=== PATIENT | female | born 1960 | race Caucasian/White ===

== ENCOUNTER 2022-09-05 11:26 | Inpatient (IN) | payer MEDICAID ==
[~2022-09-05] VITALS: Ht 160 cm; Wt 68.0 kg
[2022-09-05 11:30] VITALS: BP 136/74
[2022-09-05] MEDS ORDERED: ONDANSETRON 4 MG/2 ML VIAL IVP ONE (11:35)
[2022-09-05] MEDS ORDERED: NACL 0.9% 1,000 ML IV ONE (11:35)
[2022-09-05 11:54] LABS: BASOPHILS % (AUTO) 0.4 % (0.0-2.0); EOSINOPHILS # (AUTO) 0.1 K/uL (0-0.4); EOSINOPHILS % (AUTO) 1.5 % (0.0-4.0); HEMATOCRIT 41.6 % (36-48); LYMPHOCYTES # (AUTO) 2.1 K/uL (2.5-16.5); LYMPHOCYTES % (AUTO) 30.4 % (20.5-51.1); MEAN CORPUSCULAR HEMOGLOBIN 29 pg (27-31); MEAN CORPUSCULAR HGB CONC 34 g/dL (33-37); MEAN CORPUSCULAR VOLUME 86.2 fL (80-94); MONOCYTES # (AUTO) 0.4 K/uL (0.8-1.0); MONOCYTES % (AUTO) 6.4 % (1.7-9.3); NEUTROPHILS # (AUTO) 4.2 K/uL (1.8-7.7); NEUTROPHILS % (AUTO) 61.3 % (42.2-75.2); PLATELET COUNT (AUTO) 217 K/uL (140-450); RED BLOOD CELL COUNT(AUTO) 4.83 MIL/uL (4.20-5.40); RED CELL DISTRIBUTION WIDTH 14.1 % (11.6-13.7); WHITE BLOOD COUNT (AUTO) 6.8 K/uL (4.8-10.8)
--- NOTE | 2022-09-05 11:54 | NUR ---
PT WENT TO RADIOLOGY
--- NOTE | 2022-09-05 12:07 | NUR ---
ASSUMED PATIENT CARE, NURSING ASSESSMENT COMPLETED.
[2022-09-05 13:00] LABS: ALBUMIN 4.2 g/dL (3.4-5.0); ANION GAP 9.3 (8-16); ASPARTATE AMINOTRANSFERASE 18 U/L (15-37); CARBON DIOXIDE 30.5 mmol/L (21-32); CHLORIDE 106 mmol/L (98-107); CREATININE 0.6 mg/dL (0.6-1.3); GFR ARICAN-AMERICAN 130 mL/min (>90); GLUCOSE 98 mg/dL (74-106); POTASSIUM 3.8 mmol/L (3.5-5.1); SODIUM SERUM 142 mmol/L (136-145); TOTAL BILIRUBIN 0.7 mg/dL (0.0-1.0); UREA NITROGEN, BLOOD 13 mg/dL (7-18)
[2022-09-05] MEDS ORDERED: ASPI-1822 PO (13:09)
[2022-09-05] MEDS ORDERED: LORazepam 2 MG/ML VIAL IVP PRN (14:35)
[2022-09-05] MEDS ORDERED: ONDANSETRON 4 MG/2 ML VIAL IVP PRN (14:35)
[2022-09-05] MEDS ORDERED: MAG SULF 2000 MG/WATER PREMIX 50 ML IV PRN (14:35)
[2022-09-05] MEDS ORDERED: ZOLPIDEM 10 MG TAB PO PRN (14:35)
[2022-09-05] MEDS ORDERED: DOCUSATE SODIUM 100 MG GELCAP PO PRN (14:35)
[2022-09-05] MEDS ORDERED: POTASSIUM CHLORIDE 10 MEQ TABER PO PRN (14:35)
[2022-09-05] MEDS ORDERED: LOSA100T2 PO (15:53)
[2022-09-05] MEDS ORDERED: ATOR40TA PO (15:53)
[2022-09-05] MEDS ORDERED: METO25TA14 PO (15:53)
[2022-09-05] MEDS ORDERED: GABA300C PO (15:53)
--- NOTE | 2022-09-05 16:27 | NUR ---
DISPO AND MEDICAL DECISION MAKING INPATIENT ADMISSION. PATIENT CARE REPORT GIVEN TO TODD, CONTINUITY OF CARE ENDORSED ACCORDINGLY.
--- NOTE | 2022-09-05 16:28 | NUR ---
Patient will be admitted to care of [facility] [place]. Admited to TELEMETRY. Will go to room 106. Belongings list completed. Report to TODD.
--- NOTE | 2022-09-05 17:00 | NUR ---
Received patient from ED nurse. Care Plan started.
--- NOTE | 2022-09-05 19:31 | NUR ---
ENDORSED PATIENT TO PM NURSE FOR CONTINUATION.
--- NOTE | 2022-09-05 19:35 | NUR ---
RECEIVED REPORT FROM DAY SHIFT RN FOR CONTINUITY OF CARE. PT IS AWAKE NOT IN ANY DISTRESS. PT STATES SHE FEELS FATIGUE AND TIRED. DENIES ANY NUMBNESS OR DIFFICULTY SWALLOWING AT THIS TIME. DENIES ANY PAIN. POC DISCUSSED WITH THE PT. ALL QUESTIONS ANSWERED. WILL CONTINUE TO MONITOR THE PT.
[2022-09-05 20:00] VITALS: BP 114/61
[2022-09-06] VITALS: BP 108/57
--- NOTE | 2022-09-06 | NUR ---
VITAL SIGNS TAKEN AND STABLE. PT HAS NO COMPLAINS AT THIS TIME. DENIES ANY PAIN. WILL CONTINUE TO MONITOR THE PT.
[2022-09-06 04:00] VITALS: BP 114/60
--- NOTE | 2022-09-06 04:00 | NUR ---
VITAL SIGNS TAKEN AND STABLE. NO COMPLAINS FROM THE PT. WILL CONTINUE TO MONITOR THE PT.
[2022-09-06 06:17] LABS: BASOPHILS % (AUTO) 0.3 % (0.0-2.0); EOSINOPHILS # (AUTO) 0.1 K/uL (0-0.4); HEMATOCRIT 40.5 % (36-48); HEMOGLOBIN 13.4 g/dL (12.0-16.0); LYMPHOCYTES # (AUTO) 2.5 K/uL (2.5-16.5); LYMPHOCYTES % (AUTO) 36.7 % (20.5-51.1); MEAN CORPUSCULAR HEMOGLOBIN 29 pg (27-31); MEAN CORPUSCULAR HGB CONC 33 g/dL (33-37); MONOCYTES # (AUTO) 0.4 K/uL (0.8-1.0); NEUTROPHILS # (AUTO) 3.7 K/uL (1.8-7.7); PLATELET COUNT (AUTO) 212 K/uL (140-450); RED BLOOD CELL COUNT(AUTO) 4.65 MIL/uL (4.20-5.40); RED CELL DISTRIBUTION WIDTH 14.2 % (11.6-13.7); WHITE BLOOD COUNT (AUTO) 6.8 K/uL (4.8-10.8)
[2022-09-06 06:38] LABS: ANION GAP 11.6 (8-16); CARBON DIOXIDE 26.5 mmol/L (21-32); CREATININE 0.6 mg/dL (0.6-1.3); POTASSIUM 4.1 mmol/L (3.5-5.1)
--- NOTE | 2022-09-06 07:07 | NUR ---
ENDORSED PT TO DAY SHIFT RN FOR CONTINUITY OF CARE. PT IS STABLE.
--- NOTE | 2022-09-06 07:13 | NUR ---
RECEIVED PATIENT FROM PM NURSE FOR CONTINUITY OF CARE. PATIENT SEEN ASLEEP ON BED. NORMAL RISE AND FALL OF CHEST.
[2022-09-06 08:00] VITALS: BP 108/57
[2022-09-06] MEDS ORDERED: ATORVASTATIN 20 MG TAB PO SCH (09:00)
[2022-09-06] MEDS ORDERED: METOPROLOL 25 MG TAB PO SCH (09:00)
[2022-09-06] MEDS ORDERED: LOSARTAN 50 MG TAB PO SCH (09:00)
[2022-09-06] MEDS ORDERED: GABAPENTIN 300 MG CAP PO SCH (09:00)
[2022-09-06] MEDS ORDERED: ASPIRIN 81 MG TAB.CHEW PO SCH (09:00)
[2022-09-06] MEDS ORDERED: IBUPROFEN 400 MG TAB PO PRN (10:10)
[2022-09-06 12:00] VITALS: BP 111/62
--- NOTE | 2022-09-06 18:55 | NUR ---
PATIENT WANTS TO GO TO ANOTHER FACILITY FOR FURTHER TESTS. EXPLAINED THE SITUATION OF TRANSFERING A PATIENT. PATIENT DECIDES TO AMA. AMA PAPERS GIVEN. PATIENT LEFT WITH FAMILY, ALL BELONGINGS CHECKED AND PATIENT AMBULATORY.
== END 2022-09-06 18:46 | disposition left against medical advice (07) | DRG 204 ==
LOC: MED 11:26 → MTU 14:31
PROVIDERS: ADMIT Family Medicine; ATTEND Family Medicine
DX: R55 Syncope and collapse (principal); E78.5 Hyperlipidemia, unspecified; I10 Essential (primary) hypertension; Z53.29 Procedure and treatment not carried out because of patient's decision for other reasons; Z20.822 Contact with and (suspected) exposure to COVID-19; Z79.82 Long term (current) use of aspirin; Z88.6 Allergy status to analgesic agent; Z79.899 Other long term (current) drug therapy; Z88.5 Allergy status to narcotic agent; Z90.710 Acquired absence of both cervix and uterus
CPT/HCPCS: 36415; 70450; 71045; 80048; 80053; 83735; 84484; 85025; 87081; 93005; 93880; 96361; 96374; 97110; 97116; 97530; 99291; 99292; J2405; Q0092

== ENCOUNTER 2023-09-13 19:42 | Inpatient (IN) | payer MEDICAID ==
[~2023-09-13] VITALS: Ht 167.6 cm; Wt 74.8 kg
[~2023-09-13 19:42] MED LIST: ASPI-1822 PO; ATOR40TA PO; GABA300C PO; LOSA-272 PO; METO25TA14 PO
[2023-09-13 19:45] VITALS: BP 130/78; PULSE 75; RESP 16; TEMP 97.3; O2SAT 99
[2023-09-13 20:17] VITALS: O2SAT 94
[2023-09-13 20:32] LABS: BASOPHILS % (AUTO) 0.3 % (0.0-2.0); EOSINOPHILS # (AUTO) 0.1 K/uL (0-0.4); EOSINOPHILS % (AUTO) 2.3 % (0.0-4.0); HEMATOCRIT 37.9 % (36-48); HEMOGLOBIN 12.8 g/dL (12.0-16.0); LYMPHOCYTES # (AUTO) 2.1 K/uL (2.5-16.5); LYMPHOCYTES % (AUTO) 35.2 % (20.5-51.1); MEAN CORPUSCULAR HEMOGLOBIN 29 pg (27-31); MEAN CORPUSCULAR HGB CONC 34 g/dL (33-37); MEAN CORPUSCULAR VOLUME 85.7 fL (80-94); MONOCYTES # (AUTO) 0.4 K/uL (0.8-1.0); MONOCYTES % (AUTO) 7.2 % (1.7-9.3); NEUTROPHILS # (AUTO) 3.3 K/uL (1.8-7.7); PLATELET COUNT (AUTO) 197 K/uL (140-450); RED BLOOD CELL COUNT(AUTO) 4.43 MIL/uL (4.20-5.40); RED CELL DISTRIBUTION WIDTH 14.1 % (11.6-13.7)
[2023-09-13 20:58] LABS: ANION GAP 14.3 (8-16); CALCIUM 9.1 mg/dL (8.5-10.1); CARBON DIOXIDE 25.3 mmol/L (21-32); CREATININE 0.6 mg/dL (0.6-1.3); POTASSIUM 3.6 mmol/L (3.5-5.1)
[2023-09-13 21:03] LABS: INR 0.96 (0.8-1.2); PARTIAL THROMBOPLASTIN TIME 30.3 secs (22-35.6); PROTHROMBIN TIME 10.1 secs (10.8-13.4)
[2023-09-13] MEDS ORDERED: ONDANSETRON 4 MG/2 ML VIAL IVP PRN (21:25)
[2023-09-13] MEDS: NACL 0.9% 1,000 ML IV SCH (21:56)
[2023-09-13 22:43] VITALS: O2SAT 94
[2023-09-14] MEDS ORDERED: MELATONIN 3 MG TAB PO PRN (01:15)
[2023-09-14 01:24] VITALS: O2SAT 95
[2023-09-14] MEDS: ACETAMINOPHEN 325 MG TAB PO PRN (01:28)
[2023-09-14 07:09] LABS: ANION GAP 11.5 (8-16); CALCIUM 8.7 mg/dL (8.5-10.1); CARBON DIOXIDE 26.5 mmol/L (21-32); CREATININE 0.5 mg/dL (0.6-1.3)
[2023-09-14 07:40] VITALS: PULSE 74; RESP 18; O2SAT 98
[2023-09-14 08:00] VITALS: PULSE 74; RESP 18; O2SAT 98
[2023-09-14] MEDS: ASPIRIN 81 MG TAB.CHEW PO SCH (08:22)
[2023-09-14] MEDS: METOPROLOL 25 MG TAB PO SCH (08:23)
[2023-09-14] MEDS: GABAPENTIN 300 MG CAP PO SCH (08:23)
[2023-09-14] MEDS: LOSARTAN 50 MG TAB PO SCH (08:23)
[2023-09-14] MEDS ORDERED: ASPIRIN 81 MG TAB.CHEW PO SCH (09:00)
[2023-09-14 12:00] VITALS: BP 108/59; PULSE 58; RESP 18; TEMP 97.8; O2SAT 95
[2023-09-14 16:00] VITALS: BP 97/61; PULSE 77; PULSE 80; RESP 18; TEMP 98; O2SAT 98
[2023-09-14 18:48] VITALS: BP 107/61; PULSE 80; RESP 18; TEMP 98
[2023-09-14] MEDS ORDERED: ATORVASTATIN 20 MG TAB PO SCH (21:00)
== END 2023-09-14 20:30 | disposition home or self-care (01) | DRG 203 ==
LOC: MED 19:42 → MTU 21:28
PROVIDERS: ADMIT Family Medicine; ATTEND Family Medicine
DX: M94.0 Chondrocostal junction syndrome [Tietze] (principal); I10 Essential (primary) hypertension; Z79.899 Other long term (current) drug therapy; Z88.5 Allergy status to narcotic agent
CPT/HCPCS: 36415; 71045; 80048; 83880; 84484; 85025; 85610; 85730; 87081; 93005; 93307; 99285; J0696; J7060; Q0092